=== PATIENT | female | born 1950 | race Caucasian/White ===

== ENCOUNTER 2021-05-13 22:23 | Emergency (ER) | payer MEDICARE, OTHER ==
[2021-05-13] MEDS ORDERED: Lidocaine 1% with EPINEPHrine 1:100,000 50 ML MDV INFILT ONE (23:52)
--- NOTE | 2021-05-13 23:55 | EDM.PDOC ---
ED HPI GENERAL MEDICAL PROBLEM - General Chief Complaint: Laceration Stated Complaint: HEAD LACERACTION Time Seen by Provider: 05/13/21 23:35 Source of Information: Reports: Patient, Family History Limitations: Reports: No Limitations - History of Present Illness INITIAL COMMENTS - FREE TEXT/NARRATIVE: 71-year-old female took a tumble earlier tonight landing on her right knee and hitting her forehead on the ground. She has a laceration on the upper forehead, and a abrasion at scrape on the right knee. No loss of consciousness. She also has an abrasion on her right anterior knee which feels sore as well. She was able to ambulate. No visual complaints, some nausea but no vomiting. Onset: Sudden Duration: Hour(s): (1 hour prior to coming in) Location: Reports: Head, Lower Extremity, Right Worsens with: Reports: Movement (Knee hurts worse with movement) Associated Symptoms: Reports: Nausea/Vomiting, Other (No significant headache). Denies: Fever/Chills Right Knee Pain Score (Numeric/FACES): 5 - Related Data Allergies Allergy/AdvReac Type Severity Reaction Status Date / Time No Known Allergies Allergy Verified 05/13/21 23:41 Home Meds: Home Meds NK [No Known Home Meds] 05/13/21 [History] Past Medical History - Infectious Disease History Infectious Disease History: Reports: Measles - Past Surgical History Female Surgical History: Reports: Section Social & Family History - Family History Family Medical History: No Pertinent Family History - Tobacco Use Tobacco Use Status *Q: Never Tobacco User - Caffeine Use Caffeine Use: Reports: Coffee - Recreational Drug Use Recreational Drug Use: No ED ROS GENERAL - Review of Systems Review Of Systems: See Below Constitutional: Reports: Malaise. Denies: Fever, Chills HEENT: Denies: Vision Change Respiratory: Denies: Shortness of Breath, Cough Cardiovascular: Denies: Chest Pain GI/Abdominal: Reports: Nausea. Denies: Abdominal Pain, Vomiting : Reports: No Symptoms Musculoskeletal: Reports: Other (Mild left thumb pain, right knee pain) Skin: Reports: Other (Laceration on her upper forehead and abrasion on her right knee) Neurological: Reports: Difficulty Walking (Due to right knee pain). Denies: Dizziness, Headache Psychiatric: Reports: No Symptoms ED EXAM, SKIN/RASH Exam: See Below Exam Limited By: No Limitations General Appearance: Alert, No Apparent Distress, Anxious Eye Exam: Bilateral Eye: Normal Inspection Head: Other (Patient is a 6 cm laceration extending from the high center forehead down to the middle forehead.) Respiratory/Chest: No Respiratory Distress, Lungs Clear Cardiovascular: Regular Rate, Rhythm GI/Abdominal: Soft, Non-Tender Extremities: Other (Patient has a superficial abrasion on the right anterior knee, no patellar tenderness to palpation and no ligament laxity) Neurological: Alert, Oriented, No Motor/Sensory Deficits Course - Vital Signs Last Recorded V/S: Last Vital Signs Temp 97.3 F 05/13/21 23:42 Pulse 76 05/13/21 23:42 Resp 16 05/13/21 23:42 BP 164/74 H 05/14/21 00:53 Pulse Ox 100 05/13/21 23:42 - Orders/Labs/Meds Orders: Active Orders 24 hr Category Date Time Status Knee 3V Rt [CR] Stat Exams 05/14/21 00:44 Taken Meds: Medications Discontinued Medications Generic Name Dose Route Start Last Admin Trade Name Salq PRN Reason Stop Dose Admin Bacitracin 1 dose 05/14/21 00:43 05/14/21 00:53 Bacitracin Oint 1 Gm U/D Packet TOP 05/14/21 00:44 1 dose ONETIME ONE Administration Bacitracin 1 dose 05/14/21 01:37 05/14/21 01:42 Bacitracin Oint 1 Gm U/D Packet TOP 05/14/21 01:38 1 dose ONETIME ONE Administration Lidocaine/Epinephrine 30 ml 05/13/21 23:52 05/13/21 23:58 Lidocaine 1% With Epinephrine 1:100,000 50 Ml Mdv INFILT 05/13/21 23:53 30 ml ONETIME ONE Administration Ondansetron HCl 4 mg 05/14/21 00:50 05/14/21 00:53 Ondansetron 4 Mg Tab.Dis PO 05/14/21 00:51 4 mg ONETIME ONE Administration - Re-Assessments/Exams Free Text/Narrative Re-Assessment/Exam: 05/14/21 01:20 The forehead laceration was anesthetized with 1% lidocaine with epinephrine, and washed with saline. A running 5-0 Ethilon suture was then used to close the laceration, the suture broke however prior to finishing so the end was tied in 1 single interrupted suture was used to finish the closure. 05/14/21 03:20 A right knee x-ray was obtained that showed a possible small foreign body but no fracture. Her wounds were covered with bacitracin and dressed, she will be placed on cephalexin 500 mg 3 times a day and was also given 10 hydrocodone for extra pain control. Sutures can be removed in 7 days. Departure - Departure Time of Disposition: 02:06 Disposition: Home, Self-Care 01 Clinical Impression: Abrasion, right knee, initial encounter Forehead laceration Qualifiers: Encounter type: initial encounter Qualified Code(s): S01.81XA - Laceration without foreign body of other part of head, initial encounter - Discharge Information Instructions: Laceration Care, Adult, [id number], Abrasion, [id number] Referrals: PCP,None [Primary Care Provider] - Forms: ED Department Discharge Care Plan Goals: Keep wounds covered and clean while healing, and sutures can be removed in 7 days. Take antibiotic 3 times a day until gone, and increase activity as tolerated. Recheck sooner if concerns of infection or not healing satisfactorily. Ibuprofen or acetaminophen will help with pain, add stronger pain medication if needed. Sepsis Event Note (ED) - Evaluation Sepsis Screening Result: No Definite Risk - Focused Exam Vital Signs: Vital Signs Temp Pulse Resp BP Pulse Ox 05/14/21 00:53 164/74 H 05/13/21 23:42 97.3 F 76 16 182/91 H 100 05/13/21 23:39 97.3 F 76 16 182/91 H 100 - My Orders Last 24 Hours: My Active Orders 05/14/21 00:44 Knee 3V Rt [CR] Stat - Assessment/Plan Last 24 Hours: My Active Orders 05/14/21 00:44 Knee 3V Rt [CR] Stat
[2021-05-14] MEDS ORDERED: Bacitracin Oint 1 GM U/D Packet TOP ONE ×2 (00:43→01:37)
[2021-05-14] MEDS ORDERED: Ondansetron 4 MG Tab.DIS PO ONE (00:50)
--- NOTE | 2021-05-15 12:33 | CR ---
Knee 3V Rt CLINICAL HISTORY: Fall FINDINGS: No acute fracture or dislocation is noted. There are no osseous lesions. There is some prominence of the intercondylar eminence and some narrowing of the medial patellofemoral joint space. Impression: No fracture Osteoarthritic change
== END 2021-05-14 02:14 | disposition home or self-care (01) ==
LOC: JP.ED 22:23
DX: S01.81XA Laceration without foreign body of other part of head, initial encounter (principal); S80.211A Abrasion, right knee, initial encounter; W01.0XXA Fall on same level from slipping, tripping and stumbling without subsequent striking against object, initial encounter
CPT/HCPCS: 12014; 73562; 99283; A9270